=== PATIENT | female | born 1965 | race American Indian/Alaskan Native ===

== ENCOUNTER 2016-09-21 12:51 | Observation (INO) | payer MEDICAID ==
[2016-09-21] MEDS ORDERED: Morphine 4 mg/ml ISec IVP STA ×2 (13:10→16:02)
[2016-09-21] MEDS ORDERED: Sodium Chloride 0.9% 1,000 ML IV STA (13:12)
[2016-09-21 13:17] VITALS: TEMP 97.8; BMI 36.6
[2016-09-21 13:57] LABS: ADD MANUAL DIFF? NO
[2016-09-21 14:07] LABS: BASO # 0.02 K/mm3 (0.0-2.0); BASO % 0.4 % (0.0-3.0); EOS % 0.6 % (1.5-5.0); GRAN % 69.2 % (50.0-68.0); HEMATOCRIT 41.5 % (36.0-48.0); LYMPH # 1.1 (1.2-3.4); LYMPH % 22.3 % (22.0-35.0); MEAN CELL VOLUME 87.7 fL (80.0-105.0); MEAN CORPUSCULAR HEMOGLOBIN 30.2 pg (25.0-35.0); MEAN CORPUSCULAR HGB CONC 34.5 g/dl (31.0-37.0); MEAN PLATELET VOLUME 11.2 fl (7.0-11.0); MONO # 0.4 (0.1-0.6); MONO % 7.5 % (1.0-6.0); PLATELET COUNT 228 10^3/uL (120.0-450.0); WHITE BLOOD COUNT 5.1 10^3/ul (4.5-11.0)
--- NOTE | 2016-09-21 14:09 | ED PDOC ---
Arrival/HPI - General Chief Complaint: Abdominal Pain Time Seen by Provider: 09/21/16 12:59 Historian: Patient - History of Present Illness Narrative History of Present Illness (Text): 09/21/16 14:05 A 51 year old female, whose past medical history includes GERD, hypertension and frequent abdominal pain, presents to the emergency department complaining of worsening abdominal pain this morning. Patient reports nausea, vomiting, diarrhea, fevers, chills, shortness of breath, dizziness. Patient denies any constipation, headache or any other complaints at this time. Time/Duration: 4-6 hours Symptom Onset: Sudden Symptom Course: Unchanged Activities at Onset: Rest Modifying Factors (Text): none Context: Home Associated Symptoms (Text): nausea, vomiting, diarrhea, dizziness, fevers, chills, shortness of breath Past Medical History - Provider Review Nursing Documentation Reviewed: Yes - Infectious Disease Hx of Infectious Diseases: None - Tetanus Immunization Tetanus Immunization: Unknown - Reproductive Menopause: No - Cardiac Hx Angina: Yes Hx Hypertension: Yes - Pulmonary Hx Respiratory Disorders: No - Neurological Hx Neurological Disorder: No - Renal Hx Kidney Stones: Yes - Musculoskeletal/Rheumatological Hx Back Pain: Yes Hx Falls: No - Gastrointestinal Hx Crohn's Disease: Yes Hx Gastritis: Yes Hx Gastroesophageal Reflux: Yes - Genitourinary/Gynecological Hx Genitourinary Disorders: Yes (FIBROIDS) - Psychiatric Hx Depression: No Hx Emotional Abuse: No Hx Physical Abuse: No Hx Substance Use: No - Past Surgical History Past Surgical History: No Previous - Surgical History Hx Cholecystectomy: Yes - Anesthesia Hx Anesthesia: Yes Hx Anesthesia Reactions: No Hx Malignant Hyperthermia: No - Suicidal Assessment Feels Threatened In Home Enviroment: No Family/Social History - Physician Review Nursing Documentation Reviewed: Yes Family/Social History: No Known Family HX Smoking Status: Light Smoker < 10 Cigarettes Daily Hx Alcohol Use: Yes (SOCIAL ETOH USE. LAST DRANK 3 WKS AGO.) Hx Substance Use: No Hx Substance Use Treatment: No Allergies/Home Meds Allergies/Adverse Reactions: Allergies No Known Allergies Allergy (Verified 09/21/16 13:18) Home Medications: Home Meds Medication Instructions Recorded Confirmed oxyCODONE [oxyCODONE Immediate 1 tab PO PRN PRN 01/12/16 09/21/16 Release Tab] Ranitidine HCl [Heartburn Relief] 150 mg PO BID 02/24/16 09/21/16 Hydrochlorothiazide 25 mg PO DAILY 09/21/16 09/21/16 Review of Systems - Physician Review All systems were reviewed & negative as marked: Yes - Review of Systems Constitutional: Fevers, Other (chills) Respiratory: SOB Cardiovascular: absent: Chest Pain Gastrointestinal: Abdominal Pain, Diarrhea, Nausea, Vomiting. absent: Constipation Genitourinary Female: absent: Dysuria Neurological: Dizziness. absent: Headache Physical Exam Vital Signs Reviewed: Yes Vital Signs Temp Pulse Resp BP Pulse Ox 09/21/16 17:08 72 17 128/86 99 09/21/16 13:13 97.8 F 78 18 127/85 97 Temperature: Afebrile Blood Pressure: Normal Pulse: Regular Respiratory Rate: Normal Appearance: Positive for: Well-Appearing, Non-Toxic, Comfortable Pain Distress: None Mental Status: Positive for: Alert and Oriented X 3 - Systems Exam Head: Present: Atraumatic, Normocephalic Pupils: Present: PERRL Conjunctiva: Present: Normal Mouth: Present: Moist Mucous Membranes Pharnyx: Present: Normal. No: ERYTHEMA, EXUDATE Neck: Present: Normal Range of Motion Respiratory/Chest: Present: Clear to Auscultation, Good Air Exchange. No: Respiratory Distress, Accessory Muscle Use Cardiovascular: Present: Regular Rate and Rhythm, Normal S1, S2. No: Murmurs Abdomen: Present: Tenderness (LUQ tenderness to palpation), Normal Bowel Sounds. No: Distention Back: Present: Normal Inspection Upper Extremity: Present: Normal Inspection. No: Cyanosis, Edema Lower Extremity: Present: Normal Inspection. No: Edema Neurological: Present: GCS=15, CN II-XII Intact, Speech Normal Skin: Present: Warm, Dry, Normal Color. No: Rashes Psychiatric: Present: Alert, Oriented x 3, Normal Insight, Normal Concentration Medical Decision Making ED Course and Treatment: 09/21/16 14:10 Impression: A 51 year old female with worsening abdominal pain. Differential Diagnosis included but are not limited to: pancreatitis vs colitis vs gas vs diverticulitis Plan: -- EKG -- chest xray --CT abd/pelvis -- Urinalysis -- Labs -- Morphine, Pepcid, IV fluids, Zofran -- Reassess and disposition Prior Visits: Notes and results from previous visits were reviewed. On 02/24/16, patient reported to emergency department complaining of abdominal pain. Patient was admitted for observation. Patient was seen by GI and surgery. She was discharged on 02/26/16 on po antibiotics, advised to follow up w PMD amd GI as outpatient. Progress Notes: EKG: Ordered, reviewed, and independently interpreted the EKG. Rate : 70 BPM Rhythm : NSR Interpretation : Normal axis, normal intervations Comparison : Old T wave inversions present on previous EKG on 02/24/16, No new ST /T changes Chest Xray: No active disease. 09/21/16 14:05 Patient reports improved abdominal pain but pain still present when moves. CT abd/pelvis: Creator : Karsten Lincoln MD IMPRESSION: Liver is borderline/ mildly enlarged measuring nearly 18 cm in CC dimension. Mild diffuse fatty hepatic infiltration. There also appears to be mild central intrahepatic biliary ductal dilatation. Patient is status post cholecystectomy with mild ductal dilatation felt to be cholecystectomy dilatation of the bile ducts. Mild submucosal fat deposition of the colonic wall suggesting sequela of chronic inflammation. Clinical correlation recommended. - Lab Interpretations Lab Results: 09/21/16 13:20 09/21/16 13:20 Lab Results 09/21/16 13:20: Sodium 140, Potassium 3.5 L, Chloride 100, Carbon Dioxide 30, Anion Gap 14, BUN 14, Creatinine 0.6, Est GFR ( Amer) > 60, Est GFR (Non- Af Amer) > 60, Random Glucose 94, Calcium 10.0, Total Bilirubin 0.9, AST 43 H, ALT 50, Alkaline Phosphatase 59, Lactate Dehydrogenase 482, Total Creatine Kinase 37, Troponin I < 0.01, Total Protein 7.9, Albumin 4.3, Globulin 3.7, Albumin/Globulin Ratio 1.2, Amylase 102, Lipase 54 09/21/16 13:20: PT 11.2, INR 1.04, APTT 28.0 09/21/16 13:20: WBC 5.1, RBC 4.73, Hgb 14.3, Hct 41.5, MCV 87.7, MCH 30.2, MCHC 34.5, RDW 14.0, Plt Count 228, MPV 11.2 H, Gran % 69.2 H, Lymph % (Auto) 22.3, [place] % (Auto) 7.5 H, Eos % (Auto) 0.6 L, Baso % (Auto) 0.4, Gran # 3.50, Lymph # 1.1 L, [place] # 0.4, Eos # 0.0, Baso # 0.02 - RAD Interpretation Radiology Orders: 09/21/16 13:11 CHEST PORTABLE [RAD] Stat - Medication Orders Current Medication Orders: Discontinued Medications Dicyclomine HCl (Bentyl) 10 mg PO ONCE STA Stop: 09/21/16 16:02 Last Admin: 09/21/16 16:56 Dose: 10 mg Famotidine (Pepcid) 20 mg IVP STAT STA Stop: 09/21/16 13:11 Last Admin: 09/21/16 13:43 Dose: 20 mg Sodium Chloride (Sodium Chloride 0.9%) 1,000 mls @ 999 mls/hr IV .Q1H1M STA Stop: 09/21/16 14:12 Last Admin: 09/21/16 13:43 Dose: 999 mls/hr Morphine Sulfate (Morphine) 4 mg IVP STAT STA Stop: 09/21/16 13:11 Last Admin: 09/21/16 13:43 Dose: 4 mg Morphine Sulfate (Morphine) 4 mg IVP ONCE STA Stop: 09/21/16 16:03 Last Admin: 09/21/16 16:56 Dose: 4 mg Ondansetron HCl (Zofran Inj) 4 mg IVP STAT STA Stop: 09/21/16 13:11 Last Admin: 09/21/16 13:43 Dose: 4 mg Oxycodone HCl (Oxycodone Immediate Release Tab) 30 mg PO ONCE STA Stop: 09/21/16 16:02 Last Admin: 09/21/16 16:56 Dose: 30 mg Potassium Chloride (Potassium Chloride Oral Soln) 40 meq PO ONCE ONE Stop: 09/21/16 14:26 Last Admin: 09/21/16 16:00 Dose: 40 meq ED OBSERVATION Discharge: Yes Date of observation admission: 09/21/16 Time of observation admission: 01:03 - Observation admission statement Patient is being placed in observation because:: worsening abdominal pain - Goals of Observation Goals of observation are:: reassess and disposition - Progress Note Progress Note: 09/21/16 14:05 Patient reports improvement in abd pain but still significant when she moves. 09/21/16 15:59 Patient says pain is pretty significant again. CT is still pending. Will give additional analgesia. 09/21/16 17:45 CT abd/pelvis: Creator : Karsten Lincoln MD IMPRESSION: Liver is borderline/ mildly enlarged measuring nearly 18 cm in CC dimension. Mild diffuse fatty hepatic infiltration. There also appears to be mild central intrahepatic biliary ductal dilatation. Patient is status post cholecystectomy with mild ductal dilatation felt to be cholecystectomy dilatation of the bile ducts. Mild submucosal fat deposition of the colonic wall suggesting sequela of chronic inflammation. Clinical correlation recommended. 09/21/16 17:50 Patient is feeling better and asking to eat. Bile duct dilatation is likely due to history of cholecystectomy. And other findings are suggestive of chronic inflammation. Labs are unremarkable. Patient feels better - ok for d/ c. - Scribe Statement The provider has reviewed the documentation as recorded by the Rubinaibsri Mckeon All medical record entries made by the Rubinaibsri were at my direction and personally dictated by me. I have reviewed the chart and agree that the record accurately reflects my personal performance of the history, physical exam, medical decision making, and the department course for this patient. I have also personally directed, reviewed, and agree with the discharge instructions and disposition. Disposition/Present on Arrival - Present on Arrival Any Indicators Present on Arrival: No History of DVT/PE: No History of Uncontrolled Diabetes: No Urinary Catheter: No History of Decub. Ulcer: No History Surgical Site Infection Following: None - Disposition Have Diagnosis and Disposition been Completed?: Yes Diagnosis: Abdominal pain Disposition: HOME/ ROUTINE Disposition Time: 18:10 Patient Plan: Discharge Patient Problems: Current Active Problems Problem Status Onset Abdominal pain Acute Condition: GOOD
[2016-09-21 14:12] LABS: ALB/GLOB RATIO 1.2 (1.1-1.8); ALKALINE PHOSPHATASE 59 U/L (38-133); ALT/SGPT 50 U/L (7-56); AMYLASE 102 U/L (35-125); AST/SGOT 43 U/L (15-39); BILIRUBIN,TOTAL 0.9 mg/dL (0.2-1.3); BLOOD UREA NITROGEN 14 mg/dL (7-21); CARBON DIOXIDE 30 mmol/L (21-33); CHLORIDE 100 mmol/L (98-107); GFR AFRICAN-AMERICAN > 60; GLUCOSE,RANDOM 94 mg/dL (70-110); LIPASE 54 U/L (23-300); POTASSIUM 3.5 mmol/L (3.6-5.0); SODIUM 140 mmol/L (132-148); TOTAL PROTEIN 7.9 g/dL (5.8-8.3)
[2016-09-21 14:16] LABS: INR 1.04 (0.93-1.08)
[2016-09-21 14:22] LABS: TROPONIN I < 0.01 ng/mL
[2016-09-21] MEDS ORDERED: Potassium Chloride 40 mEq/30 ml LIQ UD PO ONE (14:25)
--- NOTE | 2016-09-21 15:16 | CARD ---
APPROVED REPORT EKG Measurement Heart [id number] <Conclusion> Normal sinus rhythm Possible Left atrial enlargement T wave abnormality, consider anterolateral ischemia Abnormal ECG
[2016-09-21] MEDS ORDERED: oxyCODONE 30 mg Immediate Release Tab PO STA (16:01)
--- NOTE | 2016-09-21 16:47 | CT ---
PROCEDURE: CT Abdomen and Pelvis with contrast HISTORY: L side abd pain COMPARISON: Comparison made with CT scan of the abdomen and pelvis 02/24/2016. TECHNIQUE: Contrast dose: 100 cc Omnipaque 350 contrast material Radiation dose: Total exam DLP = 1060.78 mGy-cm. This CT exam was performed using one or more of the following dose reduction techniques: Automated exposure control, adjustment of the mA and/or kV according to patient size, and/or use of iterative reconstruction technique. FINDINGS: LOWER THORAX: Unremarkable. LIVER: Liver is borderline/ mildly enlarged measuring nearly 18 cm in CC dimension. Mild diffuse fatty hepatic infiltration. There also appears to be mild central intrahepatic biliary ductal dilatation. GALLBLADDER AND BILE DUCTS: Patient is status post cholecystectomy with mild ductal dilatation felt to be post cholecystectomy ductal dilatation PANCREAS: The pancreas appears minimally fatty replaced however no evidence of mass collection or calcification. No significant ductal dilatation. SPLEEN: Spleen exhibits normal size and attenuation ADRENALS: Mildly prominent left adrenal gland. Right adrenal gland unremarkable. KIDNEYS AND URETERS: Kidneys exhibit symmetric nephrograms. No evidence nephrolithiasis or hydronephrosis. Nine small exophytic cyst left kidney VASCULATURE: Unremarkable. No aortic aneurysm BOWEL: Evaluation of the bowel is somewhat limited due to the lack of oral contrast material. The stomach is incompletely distended which may account for slight thick-walled appearance. The visualized loops of small bowel exhibit normal contour and caliber. No evidence of acute mechanical small bowel obstruction. The colon is relatively collapsed. There appears to be some mild submucosal fat deposition of the colonic wall suggesting sequela of chronic inflammation. Clinical correlation recommended. APPENDIX: Normal retrocecal appendix . PERITONEUM: Unremarkable. No free fluid. No free air. Small fat containing umbiliical hernia LYMPH NODES: Unremarkable. No enlarged lymph nodes. BLADDER: Unremarkable. REPRODUCTIVE: The uterus is markedly enlarged and lobular in appearance likely due to uterine fibroids. Follow-up MRI of the female pelvis could be performed for further evaluation if necessary. BONES: Osseous structures intact. . OTHER FINDINGS: None. IMPRESSION: . Liver is borderline/ mildly enlarged measuring nearly 18 cm in CC dimension. Mild diffuse fatty hepatic infiltration. There also appears to be mild central intrahepatic biliary ductal dilatation. Patient is status post cholecystectomy with mild ductal dilatation felt to be cholecystectomy dilatation of the bile ducts. mild submucosal fat deposition of the colonic wall suggesting sequela of chronic inflammation. Clinical correlation recommended.
--- NOTE | 2016-09-21 17:04 | RAD ---
HISTORY: abd pain COMPARISON: Comparison made with CT scan abdomen pelvis 09/21/2016 which at imaged both lung bases. 02/24/2016 FINDINGS: LUNGS: Minor bibasilar atelectasis PLEURA: No significant pleural effusion identified, no pneumothorax apparent. CARDIOVASCULAR: Normal. OSSEOUS STRUCTURES: No significant abnormalities. VISUALIZED UPPER ABDOMEN: Normal. OTHER FINDINGS: None. IMPRESSION: Minor bibasilar atelectasis
[2016-09-21 17:08] VITALS: O2SAT 99
[2016-09-21 17:53] LABS: URINE BILIRUBIN NEGATIVE (NEGATIVE); URINE BLOOD TRACE-LYSED (NEGATIVE); URINE GLUCOSE (UA) NEGATIVE (NEGATIVE); URINE KETONE NEGATIVE (NEGATIVE); URINE LEUKOCYTE ESTERASE NEGATIVE Leu/uL (NEGATIVE); URINE PROTEIN NEGATIVE mg/dL (<30 mg/dL); URINE UROBILINOGEN 0.2 E.U./dL (<1 E.U./dL)
[2016-09-21 17:54] LABS: URINE APPEARANCE CLEAR (CLEAR); URINE COLOR YELLOW (YELLOW)
[2016-09-21 17:59] LABS: URINE RBC 0 - 2 /hpf (0-2); URINE WBC NEGATIVE /hpf (0-6)
[2016-09-21 18:34] VITALS: BP 122/79; PULSE 77; RESP 16
== END 2016-09-21 18:11 | disposition home or self-care (01) ==
LOC: ED 12:51 → EROBSV 13:52
PROVIDERS: ADMIT Emergency Medicine; ATTEND Emergency Medicine
DX: R10.9 Unspecified abdominal pain (principal)
CPT/HCPCS: 36415; 71010; 74177; 80053; 81001; 82150; 82550; 83605; 83615; 83690; 84484; 85025; 85610; 85730; 87086; 93005; 96374; 96375; 96376; 99284; G0378; J2270; J2405; J3480; J7040

== ENCOUNTER 2017-03-27 21:44 | Emergency (ER) | payer MEDICAID ==
[2017-03-27 21:50] VITALS: BMI 37.9
[2017-03-27 21:53] VITALS: RESP 18
[2017-03-27] MEDS ORDERED: Sodium Chloride 0.9% 1,000 ML IV STA (22:13)
[2017-03-27 22:46] VITALS: BP 138/80; PULSE 81
[2017-03-27 22:48] VITALS: TEMP 97.8
[2017-03-27 22:52] LABS: BASO # 0.02 K/mm3 (0.0-2.0); BASO % 0.3 % (0.0-3.0); EOS # 0.1 (0.0-0.7); EOS % 1.7 % (1.5-5.0); GRAN # 2.96 (1.4-6.5); HEMATOCRIT 39.8 % (36.0-48.0); LYMPH # 2.9 (1.2-3.4); LYMPH % 44.6 % (22.0-35.0); MEAN CELL VOLUME 90.9 fl (80.0-105.0); MEAN CORPUSCULAR HEMOGLOBIN 30.1 pg (25.0-35.0); MEAN CORPUSCULAR HGB CONC 33.2 g/dl (31.0-37.0); MEAN PLATELET VOLUME 10.3 fl (7.0-11.0); MONO # 0.6 (0.1-0.6); MONO % 8.4 % (1.0-6.0); RED CELL DISTRIBUTION WIDTH 14.4 % (11.5-14.5); WHITE BLOOD COUNT 6.6 10^3/ul (4.5-11.0)
[2017-03-27 22:56] LABS: ALB/GLOB RATIO 1.5 (1.1-1.8); ALKALINE PHOSPHATASE 59 U/L (38-126); ALT/SGPT 29 U/L (7-56); AMYLASE 75 U/L (35-125); AST/SGOT 27 U/L (14-36); BILIRUBIN,TOTAL 0.5 mg/dL (0.2-1.3); BLOOD UREA NITROGEN 22 mg/dL (7-21); CALCIUM 9.2 mg/dL (8.4-10.5); CARBON DIOXIDE 25 mmol/L (21-33); CHLORIDE 107 mmol/L (98-107); GFR AFRICAN-AMERICAN > 60; GLUCOSE,RANDOM 87 mg/dL (70-110); LIPASE 61 U/L (23-300); POTASSIUM 3.6 mmol/L (3.6-5.0); SODIUM 141 mmol/L (132-148); TOTAL PROTEIN 6.7 g/dL (5.8-8.3)
[2017-03-27 23:15] LABS: PH,URINE 5.5 (4.7-8.0); URINE APPEARANCE CLEAR (CLEAR); URINE BILIRUBIN NEGATIVE (NEGATIVE); URINE BLOOD NEGATIVE (NEGATIVE); URINE COLOR YELLOW (YELLOW); URINE GLUCOSE (UA) NEGATIVE (NEGATIVE); URINE KETONE NEGATIVE (NEGATIVE); URINE LEUKOCYTE ESTERASE NEGATIVE Leu/uL (NEGATIVE); URINE PROTEIN NEGATIVE mg/dL (<30 mg/dL); URINE UROBILINOGEN 0.2 E.U./dL (<1 E.U./dL)
--- NOTE | 2017-03-27 23:55 | ED PDOC ---
Arrival/HPI - General Chief Complaint: GI Problem Time Seen by Provider: 03/27/17 22:13 Historian: Patient - History of Present Illness Narrative History of Present Illness (Text): 03/27/17 22:15 A 51 year old female, whose past medical history includes gastritis, presents to the emergency department complaining of mild nausea and abdominal pain for the past hour. Patient is also complaining of 2 episodes of nonbloody diarrhea. Reports she ate dinner tonight. Denies any fever, vomiting, hematuria, dysuria, vaginal bleeding, vaginal discharge or any other complaints at this time. PMD: Dr. Gregory Time/Duration: 1 hour Symptom Onset: Sudden Symptom Course: Unchanged Activities at Onset: Rest Context: Home Past Medical History - Provider Review Nursing Documentation Reviewed: Yes - Infectious Disease Hx of Infectious Diseases: None - Tetanus Immunization Tetanus Immunization: Unknown - Cardiac Hx Angina: Yes Hx Hypertension: Yes - Pulmonary Hx Respiratory Disorders: No - Neurological Hx Neurological Disorder: No - Renal Hx Kidney Stones: Yes - Musculoskeletal/Rheumatological Hx Back Pain: Yes Hx Falls: No - Gastrointestinal Hx Crohn's Disease: Yes Hx Gastritis: Yes Hx Gastroesophageal Reflux: Yes - Genitourinary/Gynecological Hx Genitourinary Disorders: Yes (FIBROIDS) - Psychiatric Hx Depression: No Hx Emotional Abuse: No Hx Physical Abuse: No Hx Substance Use: No - Past Surgical History Past Surgical History: No Previous - Surgical History Hx Cholecystectomy: Yes - Anesthesia Hx Anesthesia: Yes Hx Anesthesia Reactions: No Hx Malignant Hyperthermia: No - Suicidal Assessment Feels Threatened In Home Enviroment: No Family/Social History - Physician Review Nursing Documentation Reviewed: Yes Family/Social History: No Known Family HX Smoking Status: Light Smoker < 10 Cigarettes Daily Hx Alcohol Use: Yes (SOCIAL ETOH USE. LAST DRANK 3 WKS AGO.) Hx Substance Use: No Hx Substance Use Treatment: No Allergies/Home Meds Allergies/Adverse Reactions: Allergies No Known Allergies Allergy (Verified 09/21/16 13:18) Home Medications: Home Meds Medication Instructions Recorded Confirmed oxyCODONE [oxyCODONE Immediate 1 tab PO PRN PRN 01/12/16 03/27/17 Release Tab] Ranitidine HCl [Heartburn Relief] 150 mg PO BID 02/24/16 03/27/17 Hydrochlorothiazide 25 mg PO DAILY 09/21/16 03/27/17 Review of Systems - Physician Review All systems were reviewed & negative as marked: Yes - Review of Systems Constitutional: absent: Fevers Gastrointestinal: Abdominal Pain, Diarrhea (nonbloody), Nausea. absent: Vomiting Genitourinary Female: absent: Dysuria, Hematuria, Vaginal Bleeding, Vaginal Discharge Physical Exam Vital Signs Reviewed: Yes Vital Signs Temp Pulse Resp BP Pulse Ox 03/27/17 23:59 18 98 03/27/17 22:45 97.8 F 81 18 138/80 93 L 03/27/17 21:50 98.2 F 68 18 142/88 96 Temperature: Afebrile Blood Pressure: Normal Pulse: Regular Respiratory Rate: Normal Appearance: Positive for: Well-Appearing, Non-Toxic, Comfortable Pain Distress: None Mental Status: Positive for: Alert and Oriented X 3 - Systems Exam Head: Present: Atraumatic, Normocephalic Pupils: Present: PERRL Extroacular Muscles: Present: EOMI Conjunctiva: Present: Normal Mouth: Present: Moist Mucous Membranes Neck: Present: Normal Range of Motion Respiratory/Chest: Present: Clear to Auscultation, Good Air Exchange. No: Respiratory Distress, Accessory Muscle Use Cardiovascular: Present: Regular Rate and Rhythm, Normal S1, S2. No: Murmurs Abdomen: Present: Tenderness (epigastric), Normal Bowel Sounds. No: Distention , Peritoneal Signs Back: Present: Normal Inspection Upper Extremity: Present: Normal Inspection. No: Cyanosis, Edema Lower Extremity: Present: Normal Inspection. No: Edema Neurological: Present: GCS=15, CN II-XII Intact, Speech Normal Skin: Present: Warm, Dry, Normal Color. No: Rashes Psychiatric: Present: Alert, Oriented x 3, Normal Insight, Normal Concentration Medical Decision Making ED Course and Treatment: 03/27/17 22:15 Impression: A 51 year old female with nausea, abdominal pain and nonbloody diarrhea. Plan: -- labs -- Pepcid, IV fluids, Zofran -- Urinalysis -- Reassess and disposition Prior Visits: Notes and results from previous visits were reviewed. Patient last reported to the emergency department on 09/21/16 for evaluation of abdominal pain. Progress Notes: - Lab Interpretations Lab Results: 03/27/17 22:38 03/27/17 22:38 Lab Results 03/27/17 23:00: Urine Color Yellow, Urine Appearance Clear, Urine pH 5.5, Ur Specific [place] 1.025, Urine Protein Negative, Urine Glucose (UA) Negative, Urine Ketones Negative, Urine Blood Negative, Urine Nitrate Negative, Urine Bilirubin Negative, Urine Urobilinogen 0.2, Ur Leukocyte Esterase Negative 03/27/17 22:38: Sodium 141, Potassium 3.6, Chloride 107, Carbon Dioxide 25, Anion Gap 13, BUN 22 H, Creatinine 0.9, Est GFR ( Amer) > 60, Est GFR ( Non-Af Amer) > 60, Random Glucose 87, Calcium 9.2, Total Bilirubin 0.5, AST 27, ALT 29, Alkaline Phosphatase 59, Total Protein 6.7, Albumin 4.0, Globulin 2.7, Albumin/Globulin Ratio 1.5, Amylase 75, Lipase 61 03/27/17 22:38: WBC 6.6 D, RBC 4.38, Hgb 13.2, Hct 39.8, MCV 90.9, MCH 30.1, MCHC 33.2, RDW 14.4, Plt Count 216, MPV 10.3, Gran % 45.0 L, Lymph % (Auto) 44.6 H, [place] % (Auto) 8.4 H, Eos % (Auto) 1.7, Baso % (Auto) 0.3, Gran # 2.96, Lymph # 2.9, [place] # 0.6, Eos # 0.1, Baso # 0.02 I have reviewed the lab results: Yes - Medication Orders Current Medication Orders: Discontinued Medications Famotidine (Pepcid) 20 mg IVP STAT STA Stop: 03/27/17 22:14 Last Admin: 03/27/17 22:44 Dose: 20 mg IVP Administration Document 03/27/17 22:44 [email or web address] (Rec: 03/27/17 22:44 [email or web address] [id number]) Charges for Administration # of IVP Administrations 1 Sodium Chloride (Sodium Chloride 0.9%) 1,000 mls @ 1,000 mls/hr IV .Q1H STA Stop: 03/27/17 23:12 Last Admin: 03/27/17 22:44 Dose: 1,000 mls/hr eMAR Start Stop Document 03/27/17 22:44 [email or web address] (Rec: 03/27/17 22:44 [email or web address] [id number]) Intravenous Solution Start Date 03/27/17 Start Time 22:44 End Date 03/27/17 Ondansetron HCl (Zofran Inj) 4 mg IVP STAT STA Stop: 03/27/17 22:14 Last Admin: 03/27/17 22:44 Dose: 4 mg IVP Administration Document 03/27/17 22:44 [email or web address] (Rec: 03/27/17 22:44 [email or web address] [id number]) Charges for Administration # of IVP Administrations 1 - Scribe Statement The provider has reviewed the documentation as recorded by the Scribe Ifrah Mckeon All medical record entries made by the Scribe were at my direction and personally dictated by me. I have reviewed the chart and agree that the record accurately reflects my personal performance of the history, physical exam, medical decision making, and the department course for this patient. I have also personally directed, reviewed, and agree with the discharge instructions and disposition. Disposition/Present on Arrival - Present on Arrival Any Indicators Present on Arrival: No History of DVT/PE: No History of Uncontrolled Diabetes: No Urinary Catheter: No History of Decub. Ulcer: No History Surgical Site Infection Following: None - Disposition Have Diagnosis and Disposition been Completed?: Yes Diagnosis: Gastritis Disposition: HOME/ ROUTINE Disposition Time: 23:15 Condition: IMPROVED Discharge Instructions (ExitCare): Gastritis (ED) Additional Instructions: Thank you for letting us take care of you today. Your provider was Dr. Cowart. The emergency medical care you received today was directed at your acute symptoms. If you were prescribed any medication, please fill it and take as directed. It may take several days for your symptoms to resolve. Return to the Emergency Department if your symptoms worsen, do not improve, or if you have any other problems. Please contact your doctor or call one of the physicians/clinics you have been referred to that are listed on the Patient Visit Information form that is included in your discharge packet. Bring any paperwork you were given at discharge with you along with any medications you are taking to your follow up visit. Our treatment cannot replace ongoing medical care by a primary care provider (PCP) outside of the emergency department. Thank you for allowing the [facility] team to be part of your care today. Follow up with your primary care doctor in 2-3 days for re-evaluation and further treatment. Prescriptions: Ranitidine HCl [Zantac] 150 mg PO BID #20 tablet Referrals: Radha Gregory MD [Primary Care Provider] - Follow up with primary Forms: [employer] (Frisian)
[2017-03-27 23:59] VITALS: O2SAT 98
== END 2017-03-28 | disposition home or self-care (01) ==
LOC: ED 21:44
DX: K29.70 Gastritis, unspecified, without bleeding (principal); I10 Essential (primary) hypertension; F17.210 Nicotine dependence, cigarettes, uncomplicated
CPT/HCPCS: 80053; 81003; 82150; 83690; 85025; 87086; 96374; 96375; 99284; J2405; J7040

== ENCOUNTER 2017-11-09 20:52 | Emergency (ER) | payer MEDICAID ==
[2017-11-09 20:52] VITALS: BMI 37.9
[2017-11-09 21:44] VITALS: TEMP 98.2
--- NOTE | 2017-11-09 21:59 | ED PDOC ---
Arrival/HPI - General Historian: Patient - History of Present Illness Time/Duration: 24 hours Symptom Onset: Gradual Symptom Course: Unchanged Quality: Aching - General Chief Complaint: ENT Problem Time Seen by Provider: 11/09/17 21:02 - History of Present Illness Narrative History of Present Illness (Text): 11/09/17 21:57 Pt is a 52 yo F with PMH of HTN presents to ED due to 1 day history of sore throat. Patient admits to sore throat, left ear pain, dry cough, congestion, dizziness, postnasal drip, and mild dyspnea. Patient denies any alleviating and aggravating factors. Patient denies any recent sick contacts, CP, n/v/d, abdominal pain, fever, chills, or POSADA. PMD: Liam Hunt) Past Medical History - Provider Review Nursing Documentation Reviewed: Yes - Infectious Disease Hx of Infectious Diseases: None - Tetanus Immunization Tetanus Immunization: Unknown - Reproductive Menopause: No - Cardiac Hx Angina: Yes Hx Hypertension: Yes - Pulmonary Hx Respiratory Disorders: No - Neurological Hx Neurological Disorder: No - Renal Hx Kidney Stones: Yes - Musculoskeletal/Rheumatological Hx Back Pain: Yes Hx Falls: No - Gastrointestinal Hx Crohn's Disease: Yes Hx Gastritis: Yes Hx Gastroesophageal Reflux: Yes - Genitourinary/Gynecological Hx Genitourinary Disorders: Yes (FIBROIDS) - Psychiatric Hx Depression: No Hx Emotional Abuse: No Hx Physical Abuse: No Hx Substance Use: No - Past Surgical History Past Surgical History: No Previous - Surgical History Hx Cholecystectomy: Yes - Anesthesia Hx Anesthesia: Yes Hx Anesthesia Reactions: No Hx Malignant Hyperthermia: No - Suicidal Assessment Feels Threatened In Home Enviroment: No Family/Social History - Physician Review Nursing Documentation Reviewed: Yes Family/Social History: No Known Family HX Smoking Status: Light Smoker < 10 Cigarettes Daily Hx Alcohol Use: Yes (SOCIAL ETOH USE. LAST DRANK 3 WKS AGO.) Hx Substance Use: No Hx Substance Use Treatment: No Allergies/Home Meds Allergies/Adverse Reactions: Allergies No Known Allergies Allergy (Verified 11/09/17 21:43) Home Medications: Home Meds Medication Instructions Recorded Confirmed Unobtainable 11/09/17 11/09/17 Review of Systems - Physician Review All systems were reviewed & negative as marked: Yes (12 point ROS reviewed and is negative other than what is stated in HPI.) Physical Exam Vital Signs Reviewed: Yes Temperature: Afebrile Blood Pressure: Normal Pulse: Regular Respiratory Rate: Normal Appearance: Positive for: Non-Toxic Pain Distress: None Mental Status: Positive for: Alert and Oriented X 3 - Systems Exam Head: Present: Atraumatic, Normocephalic Pupils: Present: PERRL Extroacular Muscles: Present: EOMI Conjunctiva: Present: Normal Ears: Present: Normal, NORMAL TM, Normal Canal. No: Erythema, TM Bulging, Fluid , TM Perf Mouth: Present: Moist Mucous Membranes Pharnyx: Present: ERYTHEMA, TONSILS ENLARGED. No: EXUDATE, Peritonsilar Swelling, Uvular Deviation, Muffled/Hoarse Voice, Strider, Soft Palate/Uvular Edema Nose (Internal): Present: Boggy, Rhinorrhea Neck: Present: Normal Range of Motion Respiratory/Chest: Present: Clear to Auscultation. No: Accessory Muscle Use, Wheezes, Rales, Rhonchi Cardiovascular: Present: Regular Rate and Rhythm, Normal S1, S2. No: Murmurs, Rub, Gallop Abdomen: No: Tenderness, Distention, Rebound, Guarding Back: Present: Normal Inspection Upper Extremity: Present: Normal Inspection. No: Cyanosis, Edema Lower Extremity: Present: Normal Inspection. No: Edema Neurological: Present: GCS=15, CN II-XII Intact, Speech Normal Skin: Present: Warm, Dry, Normal Color. No: Rashes Psychiatric: Present: Alert, Oriented x 3, Normal Insight, Normal Concentration Vital Signs Temp Pulse Resp BP Pulse Ox 11/09/17 21:37 98.2 F 95 H 18 130/81 98 Medical Decision Making ED Course and Treatment: Impression: Pt seen and evaluated with emergency medical technician/driver. Pt, whose past medical history includes hypertension, presented for sore throat, left ear pain, and cold-like symptoms. Aware and agree with HPI, clinical findings, plan, and management. Plan: -- Rapid strep -- Throat culture -- Reassess and disposition (Raimundo Pienda) 11/09/17 22:01 52 yo F presents to ED with sore throat. Plan: - Rapid Strep test - Reassess and disposition 11/09/17 23:04 Rapid strep test negative. Results discussed with patient. Explained that antibiotics are not required as her sore throat is likely viral in nature and that she will be given rx's for supportive treatment. Patient acknowledged and is was discharged. (NettieLiam) - Lab Interpretations Lab Results: Lab Results 11/09/17 22:03: Grp A Beta Strep Ag Negative Disposition/Present on Arrival - Present on Arrival Any Indicators Present on Arrival: No History of DVT/PE: No History of Uncontrolled Diabetes: No Urinary Catheter: No History of Decub. Ulcer: No History Surgical Site Infection Following: None - Disposition Have Diagnosis and Disposition been Completed?: Yes Disposition Time: 23:06 Patient Plan: Discharge - Disposition Diagnosis: Viral pharyngitis Disposition: HOME/ ROUTINE Patient Problems: Current Active Problems Problem Status Onset Viral pharyngitis Acute Condition: STABLE Discharge Instructions (ExitCare): Viral Pharyngitis (DC) Additional Instructions: 1. Use lozenges for throat pain as needed 2. Use Flonase daily for sinus pain or congestion 3. Use Mucinex for congestion 4. Maintain adequate hydration 5. Use Motrin for pain as needed per label instructions 6. Return to ED if symptoms worsen MARC MCCORMACK, thank you for letting us take care of you today. Your provider was Raimundo Pineda MD and you were treated for THROAT PAIN. The emergency medical care you received today was directed at your acute symptoms. If you were prescribed any medication, please fill it and take as directed. It may take several days for your symptoms to resolve. Return to the Emergency Department if your symptoms worsen, do not improve, or if you have any other problems. Please contact your doctor or call one of the physicians/clinics you have been referred to that are listed on the Patient Visit Information form that is included in your discharge packet. Bring any paperwork you were given at discharge with you along with any medications you are taking to your follow up visit. Our treatment cannot replace ongoing medical care by a primary care provider outside of the emergency department. Thank you for allowing the [email or web address] team to be part of your care today. Prescriptions: Fluticasone Propionate [Flonase] 1 spr NS DAILY #1 bottle Guaifenesin [Mucinex] 600 mg PO Q12H PRN #15 tab.er.[id number] PRN Reason: Cough And Congestion Referrals: Hailey Adair MD [Primary Care Provider] - Follow up with primary Forms: [employer] (Macedonian)
[2017-11-09 23:06] VITALS: BP 135/84; PULSE 90; RESP 17; O2SAT 100
== END 2017-11-09 22:43 | disposition home or self-care (01) ==
LOC: ED 20:52
DX: J02.8 Acute pharyngitis due to other specified organisms (principal); F17.210 Nicotine dependence, cigarettes, uncomplicated